=== PATIENT | male | born 1955 | race Asian ===

== ENCOUNTER 2023-08-14 18:30 | Emergency (ER) | payer OTHER, SELFPAY ==
--- NOTE | ~2023-08-14 | XR_ITS ---
EXAMINATION: XR CHEST CLINICAL INFORMATION: Chest pain COMPARISON: Chest radiograph from 01/27/2006 (report only) TECHNIQUE: 2 views of the chest were obtained. FINDINGS: Slight elevation the right hemidiaphragm. Bibasilar atelectasis, right greater than left. No pneumothorax. Trachea is midline. Cardiomediastinal silhouette is enlarged. Aorta demonstrates mild tortuosity. No large pleural effusion. Degenerative changes of the thoracolumbar spine. Soft tissues are unremarkable. XR/XR chest 2V IMPRESSION: 1. Slight elevation the right hemidiaphragm. 2. Bibasilar atelectasis, right greater than left.
--- NOTE | 2023-08-14 18:36 | ECG_ITS ---
Test Reason : CHEST PAIN Blood Pressure : / mmHG Vent. Rate : 101 BPM Atrial Rate : 101 BPM P-R Int : 178 ms QRS Dur : 084 ms QT Int : 334 ms P-R-T Axes : 025 -08 033 degrees QTc Int : 433 ms Sinus tachycardia Minimal voltage criteria for LVH, may be normal variant ( R in aVL ) Borderline ECG When compared with ECG of 20-OCT-2005 08:47, No significant change was found Referred By: Generic ED Physician Electronically Signed By:GEO XIE
[2023-08-14 18:53] VITALS: BP 188/94; PULSE 101; RESP 16; TEMP 37; O2SAT 95; BMI 26.4
[2023-08-14 19:20] LABS: Hematocrit 43.3 % (42.0-52.0); Hemoglobin 14.7 g/dl (14.0-18.0); Mean Corpuscular HGB Conc 33.9 g/dl (31.0-36.0); Mean Corpuscular Hemoglobin 28.1 pg (27.0-33.0); Mean Corpuscular Volume 82.6 fL (80.0-98.0); Mean Platelet Volume 10.1 fL (9.4-12.4); Platelet Count 276 X10*3/uL (160-400); Red Blood Count 5.24 X10*6/uL (4.60-5.80)
[2023-08-14 19:34] LABS: Alanine Aminotransferase 21 U/L (0-40); Albumin Level 4.1 g/dL (3.5-5.0); Alkaline Phosphatase 113 U/L (39-117); Anion Gap 14 (12-20); Aspartate Amino Transferase 19 U/L (5-37); Bilirubin Total 0.6 mg/dL (0.0-1.0); Blood Urea Nitrogen 12 mg/dL (9-16); Calcium 9.5 mg/dL (8.4-10.2); Carbon Dioxide 23 mmol/L (22-29); Chloride 103 mmol/L (96-108); Creatinine Clr Calc Pharmacy 68.9; Estimated Glomerular Filt Rate > 60; Glucose Random 151 mg/dL (60-115); Potassium 4.6 mmol/L (3.3-5.1); Sodium 135 mmol/L (135-145); Total Protein 7.9 g/dL (6.5-8.0)
[2023-08-14 19:43] LABS: Troponin-I High Sensitivity < 2.7 ng/L (<3.5-35.0)
[2023-08-14 19:47] VITALS: BP 153/75; PULSE 99; RESP 18; TEMP 36.9; O2SAT 98
--- NOTE | 2023-08-14 19:48 | MHC.EDTECH ---
Patient came in from waiting area ,patient changed into hospital attire and placed on the engine monitor,vitals and rounds completed. Call hudson within reach
--- NOTE | 2023-08-14 20:26 | ED_ITS ---
HPI - Chest Pain General Chief Complaint: Chest Pain Stated Complaint: chest pain Time Seen by Provider: 08/14/23 19:47 Source: patient and family () Mode of arrival: ambulatory Limitations: no limitations History of Present Illness HPI narrative: Patient is a 68-year-old male with history of HTN, high cholesterol presenting to the emergency department with brief intermittent episodes of chest pain which woke him from sleep this morning. States episodes of pain last just a few seconds and then spontaneously resolve. Denies any associated shortness of breath, lightheadedness, dizziness. Denies recent cough or fevers. Denies any nausea or vomiting. Denies any lower extremity edema. States that he does not have a alumnae secretary and has not had a stress test. Denies any back pain. Denies recent calf pain or swelling. Took 81 mg of aspirin at home today. MD complaint: chest pain Pertinent past history: other (HTN, high cholesterol) Onset (ago): hour(s) Timing of current episode: episodic Prior episodes: No Onset: during rest Pain location: substernal Pain radiation: none Severity: moderate Quality: sharp Relieving factors: nothing Exacerbating factors: nothing Treatment prior to arrival: aspirin Related Data Allergies Allergy/AdvReac Type Severity Reaction Status Date / Time No Known Allergies Allergy Verified 08/14/23 18:57 Review of Systems 2 Review of Systems: As per HPI. Yes all other systems are reviewed and are negative Constitutional: Constitutional: Reports as per HPI [facility] Social History Social History Alcohol intake: never Smoked in Last 30 Days: No Use of substances other than those prescribed or required for medical reasons: No Advance Directives: No Advance Directives Information Provided: No Physical Exam 2 Vital Signs: Vital Signs: Last Vital Signs Temp 98.2 F 08/14/23 21:55 Pulse 80 08/14/23 21:55 Resp 18 08/14/23 21:55 BP 136/80 08/14/23 21:55 Pulse Ox 95 08/14/23 21:55 O2 Del Method Room Air 08/14/23 21:55 BMI result Body Mass Index 26.4 Vital signs have been reviewed and appear to be correct. Blood pressure elevated. Heart rate normal. Respiratory rate normal. Temperature normal. Oxygen saturation normal. Const: General: cooperative, healthy appearing and no acute distress O rientation/consciousness: oriented to person, oriented to place, oriented to time and patient oriented x3 Limitations: no limitations HEENT: Head: Yes normocephalic and Yes atraumatic Ears: external ears normal General nose exam: Normal external nose present Face and sinus: Yes face symmetric Mouth: oropharynx normal and moist mucous membranes Throat: Yes uvula midline Eyes: Pupils: Equal, round and reactive pupils present Neck: Neck: Yes normal visual inspection and Yes supple Resp: Effort & Inspection: normal respiratory effort and able to speak in complete sentences Auscultation: clear to auscultation bilaterally Cardio: Rate: regular rate Rhythm: regular rhythm Heart sounds: S1 normal heart sound present and S2 normal heart sound present GI: Palpation (GI): Soft to palpation and nontender Auscultation: n ormoactive bowel sounds : General: Yes no CVA tenderness Back/Spine/Pelvis: Back: no CVA tenderness Skin: General skin exam: elasticity normal and turgor normal Neuro: General: oriented to person, oriented to place, oriented to time, patient oriented x3, moves all extremities, no focal motor deficits and CN's II- XI intact bilaterally Cranial nerves: Yes Equal, round and reactive pupils present Cognition (Neuro): normal cognition Extrem: General: Yes full ROM, Yes no pedal edema and Yes no calf tenderness Psych: Mental Status: mental status grossly normal Affect: normal affect Thought process: Normal thought process present Medical Decision Making Medical Decision Making MDM Narrative: Patient is a 68-year-old male with history of HTN, high cholesterol presenting to the emergency department with brief intermittent episodes of chest pain which woke him from sleep this morning. On exam patient is awake, A+Ox3, VS WNL, afebrile, normal neurological exam without focal deficits, physical exam findings as above. Given reported symptoms and physical exam findings, initial differential includes ACS, pneumonia, pneumothorax, GERD, musculoskeletal pain. Low risk for PE based on Wells. Do not suspect aortic dissection or esophageal rupture. Labs notable for no leukocytosis, no anemia no electrolyte abnormalities, initial troponin negative. X-ray notable for bibasilar atelectasis. My interpretation is in agreement with the radiologist's interpretation. Will obtain repeat troponin in 3 hours. No delta on repeat troponin. HEART score 3. EKG shows sinus tachycardia with rate of 101 bpm, normal IN and QT intervals, no evidence of STEMI. All results discussed with patient and and all questions answered. Feel patient is stable for discharge home at this time with outpatient cardiology follow-up. Will refer patient to cardiology as he states he does not have a alumnae secretary. Return precautions discussed at bedside. Patient and verbalized understanding of and agreement with plan. Differential Diagnosis Differential Diagnoses: The differential diagnosis associated with the presentation includes As per MDM. Admission/Observation Consideration of admission/observation: Escalation of care including admission/observation considered Lab Data [facility] Lab Attestation statement: I reviewed the patient's lab results. As per MDM. 08/14/23 19:16 08/14/23 19:16 Labs: Lab Results 08/14/23 08/14/23 Range/Units 19:16 22:14 WBC 7.0 (4.8-10.8) X10*3/uL RBC 5.24 (4.60-5.80) X10*6/uL Hgb 14.7 (14.0-18.0) g/dl Hct 43.3 (42.0-52.0) % MCV 82.6 (80.0-98.0) fL MCH 28.1 (27.0-33.0) pg MCHC 33.9 (31.0-36.0) g/dl RDW 13.0 (11.0-16.0) % Plt Count 276 (160-400) X10*3/uL MPV 10.1 (9.4-12.4) fL Absolute Nucleated RBC 0.000 (0.0-0.012) X10*3/uL Nucleated RBC % (auto) 0.0 (0.0-0.2) /100WBC Sodium 135 (135-145) mmol/L Potassium 4.6 (3.3-5.1) mmol/L Chloride 103 (96-108) mmol/L Carbon Dioxide 23 (22-29) mmol/L Anion Gap 14 (12-20) BUN 12 (9-16) mg/dL Creatinine 0.88 (0.5-1.4) mg/dL Estim Creat Clear Calc 68.9 Estimated GFR > 60 Random Glucose 151 H (60-115) mg/dL Calcium 9.5 (8.4-10.2) mg/dL Total Bilirubin 0.6 (0.0-1.0) mg/dL AST 19 (5-37) U/L ALT 21 (0-40) U/L Alkaline Phosphatase 113 (39-117) U/L Troponin I High Sens < 2.7 < 2.7 (<3.5-35.0) ng/L Total Protein 7.9 (6.5-8.0) g/dL Albumin 4.1 (3.5-5.0) g/dL Independent Interpretation I performed an independent interpretation of an: EKG and Plain X-Ray Interpretation: Sinus tachycardia, rate 101 the p.m., normal IN and QT intervals, no evidence of STEMI Bibasilar atelectasis noted on chest x-ray Radiology Impression Discussion of test interpretation with radiology: I have reviewed the radiologist's reading. Radiologist Impression: XR/XR chest 2V IMPRESSION: 1. Slight elevation the right hemidiaphragm. 2. Bibasilar atelectasis, right greater than left. Independent Historian Clinical information obtained from an independent historian. History obtained from or confirmed by: Spouse External Record Review External record reviewed: Inpatient record, Office record and Outpatient record Chronic Conditions Patient?s care impacted by: Hypertension Scores Heart Score History: -0- slightly suspicious ECG: -0- normal Age: -2- > or = 65 Risk factory: -1- 1 or 2 risk factors Troponin: -0- < or = normal limit Score: 3 Risk: 1.7% Discharge Plan Discharge Clinical Impression: Atypical chest pain Patient Disposition: Home, Self-Care Instructions: Chest Pain (DC) Additional Instructions: You were evaluated in the emergency department today for chest pain. Your evaluation has shown no signs of medical conditions requiring emergent intervention at this time, however we recommend that you follow-up with your primary care physician as possible for further testing as an outpatient. Are also being referred to Cardiology, please contact their office to set up an appointment. Return to the emergency department if you experience worsening or uncontrolled chest pain, shortness of breath, lightheadedness, feeling faint, loss of consciousness, nausea, vomiting, or any other concerning symptoms. Referrals: [facility] Cardiovascular Services [Provider Group]
[2023-08-14 21:55] VITALS: BP 136/80; PULSE 80; RESP 18; TEMP 36.8; O2SAT 95
[2023-08-14 22:42] LABS: Troponin-I High Sensitivity < 2.7 ng/L (<3.5-35.0)
== END 2023-08-14 23:16 | disposition home or self-care (01) ==
PROVIDERS: Registered Nurse Emergency; Emergency Provider Emergency Medicine; PCP Internal Medicine
DX: R07.89 Other chest pain (principal); I10 Essential (primary) hypertension; Z79.899 Other long term (current) drug therapy
CPT/HCPCS: 36415; 71046; 80053; 84484; 85027; 93005; 99284; 99285

== ENCOUNTER 2023-08-19 13:17 | Outpatient (AMB) | payer OTHER, SELFPAY ==
[2023-08-19 13:20] VITALS: BP 130/78; PULSE 74; BMI 26.0
--- NOTE | 2023-08-19 13:20 | MHC.OFFVIS ---
Intake Vital Signs 08/19/23 13:20 Height 5 ft 5 in Weight 156 lb 8.451 oz BMI 26.0 BP 130/78 Blood Pressure Location Lt brachial Position Sitting Pulse 74 Intake Visit Reasons: [facility] Follow up chest pain Intake Note: [facility] ED dx chest pain feeling good now Coiled Tubing Operator Required: No Allergies No Known Allergies Allergy (Verified 08/19/23 13:48) Medication List - Last Reconciled 08/19/23 by Arianna Freeman NP atenolol 25 mg PO DAILY atorvastatin 20 mg PO DAILY losartan 50 mg PO DAILY HPI HPI Comments History of Present Illness Details 68-year-old man comes in for a follow-up from the emergecy room. He was seen at [facility] ED for chest pain that woke him up from sleep. He described this pain as a one time incident and was stabbing like for 1-2 seconds. He has not seen a junior network engineer. He has not had the chest pain since and reports he can still exercise on the treadmill and do his daily activies such as mow the lawn without chest pain. He reports some family history of cardiac issues in his mother but he is unsure what they are. He denies any chest discomfort, dizziness, SOB, smoking, drinking, nausea, or any other symptoms. He reports he has been doing well other than that one day. [facility] Medical History (Updated 08/19/23 @ 13:58 by Arianna Freeman NP) Hyperlipidemia Hypertension Chest pain Family History Father No problems noted. Mother CAD (coronary artery disease) Brother CAD (coronary artery disease) Social History Alcohol intake: never Patient Tobacco Use Status: Never used Tobacco Review of Systems Const Denies chills, Denies daytime sleepiness, Denies fatigue, Denies fever(s), Denies frequent falls, Denies poor appetite, Denies snoring, Denies stops breathing during sleep, Denies weakness, Denies weight gain and Denies weight loss Eyes Denies loss of vision ENT Denies dizziness and Denies hearing loss Card Denies chest pain, Denies claudication, Denies leg edema, Denies lightheadedness, Denies palpitations, Denies dyspnea, Denies dyspnea on exertion and Denies orthopnea Resp Denies cough, Denies excessive phlegm production, Denies dyspnea, Denies dyspnea on exertion, Denies snoring and Denies wheezing GI Denies abdominal pain, Denies hematochezia, Denies change in bowel habits, Denies nausea and Denies vomiting Denies dysuria and Denies urinary frequency Musc Denies arthralgias, Denies muscle weakness, Denies numbness and Denies other (frequent falls) Skin/Breast Denies nail changes and Denies rash Neuro Denies Abnormal speech present, Denies dizziness, Denies frequent falls, Denies loss of vision, Denies memory loss, Denies numbness and Denies weakness Psych Denies depression and Denies memory loss Endo Denies fatigue and Denies palpitations Avmsi/Lymph Reports easy bruising and Reports other (anemia) Aller/Immun Denies wheezing Physical Exam Vital Signs: Last Vital Signs Pulse 74 08/19/23 13:20 BP 130/78 08/19/23 13:20 BMI result Body Mass Index 26.0 Const General: healthy appearing and no acute distress Orientation/consciousness: patient oriented x3 HEENT Head: Yes normal to inspection Eyes General: appearance normal, both eyes and all related structures Neck Neck: Yes normal visual inspection Chest Chest palpation & inspection: normal inspection of the chest Resp Effort & Inspection: normal respiratory effort Auscultation: clear to auscultation bilaterally Cardio Jugular venous distension: no JVD Palpation: normal PMI Rate: regular rate Rhythm: regular rhythm Heart sounds: S1 normal heart sound present, S2 normal heart sound present, no click, no gallops, no murmurs and no rubs GI Inspection: Yes normal to inspection Palpation (GI): Soft to palpation Skin General skin exam: no rashes or lesions noted Neuro General: patient oriented x3 Speech: No Abnormal speech present Extrem General: Yes normal to inspection Psych Appearance: grossly normal Assessment & Plan Assessment & Plan (1) Hypertension: Code(s): I10 - Essential (primary) hypertension (2) Chest pain: Code(s): R07.9 - Chest pain, unspecified (3) Hyperlipidemia: Code(s): E78.5 - Hyperlipidemia, unspecified Plan Hyperlipidemia and hypertension has been under the care of PCP. His blood pressure is good today. He reports no chest discomforts since, but will like to rule out ischemia and structural issues. He was instructed for a heart healthy diet and to report any new or concerning symptoms. Will have him return in six months to visit with Dr. Beckman and will call with results. He can return sooner if needed. Will request labs from PCP so we can see lipid panel. Orders: Orders CA echo transthoracic complete Today I10 - Essential (primary) hypertension, R07.9 - Chest pain, unspecified CA stress test Today I10 - Essential (primary) hypertension, R07.9 - Chest pain, unspecified Coding Level of Care Code Est Pt Level 3 (18080) Diagnoses Hypertension I10 Chest pain R07.9 Hyperlipidemia E78.5
== END 2023-08-19 13:49 | disposition home or self-care (01) ==
PROVIDERS: PCP Internal Medicine; Visit Provider Nurse Practitioner
DX: I10 Essential (primary) hypertension (principal); R07.9 Chest pain, unspecified; E78.5 Hyperlipidemia, unspecified
CPT/HCPCS: 99213

== ENCOUNTER → 2023-08-19 13:17 | Outpatient (BNVA) | payer OTHER, SELFPAY | PROVIDERS: PCP Internal Medicine; Visit Provider Nurse Practitioner | DX: R07.9 Chest pain, unspecified (principal); I10 Essential (primary) hypertension; E78.5 Hyperlipidemia, unspecified | CPT/HCPCS: 99212 ==

== ENCOUNTER → 2023-09-22 08:22 | Outpatient (REF) | payer OTHER, SELFPAY ==
--- NOTE | 2023-09-22 08:25 | CA_ITS ---
Transthoracic Echocardiogram Patient (Last, First, Middle): Juliano Watson, Gender: Male Date of : 1955 Age: 68 Procedure Date: 09/22/2023 Procedure Type: Transthoracic Echocardiogram Location: OP Height: 165.1 cm Weight: 71.67 kg BSA: 1.79 m2 Heart Rate: 72 bpm BP: 130 / 80 mmHg Cyanide Pot Tender: LYNNE Referring MD: Arianna Freeman [employer] REFINISHER Photogravure Press Operator: Rodger Beckman MD Symptoms: R07.9 - Chest pain, unspecified Study Quality: Fair ECG Rhythm: Sinus Conclusions: - 1. Normal LV ejection fraction 65-70% with grade 1 diastolic dysfunction 2. Cardiac valvular Dopplers within normal limits 3. No gross pericardial effusion Findings Left Ventricle Normal left ventricular size, thickness, and systolic function. The visually estimated ejection fraction is between 65-70%. Spectral Doppler is indicative of an impaired relaxation filling pattern. E/E prime ratio is <8, consistent with normal filling pressures. Evidence suggests grade I (mild) diastolic dysfunction. Peak GLS is -22.2%, within normal limits. Right Ventricle Normal right ventricular cavity size and systolic function. Atria The left atrium is likely dilated. Interatrial shunt cannot be excluded. The right atrium is normal in size. Aortic Valve The aortic valve structure and function is likely normal. There is no aortic valve stenosis. There is no aortic valve regurgitation. Mitral Valve Normal mitral valve structure and function. There is trace mitral valve regurgitation. There is no mitral valve stenosis. Pulmonic Valve The pulmonic valve was not well visualized. Tricuspid Valve Likely normal tricuspid valve structure and function. Tricuspid regurgitation envelope is inadequate for calculation of right ventricular systolic pressure. Normal right atrial pressure. Great Vessels All visible segments of the aorta are normal in size. The pulmonary artery was not well visualized. Venous The inferior vena cava is normal in size and collapses greater than 50% with inspiration. Pericardium/Pleural There is no evidence of pericardial effusion. Prior Study Comparison No prior study available for comparison. Measurements 2D Linear Measurements IVSd: 1.16 0.6-0.9/0.6-1.0 cm LVIDd: 4.35 3.9-5.3/4.2-5.9 cm LVIDd Index: 2.43 2.4-3.2/2.2-3.1 cm/m2 LVIDs: 2.53 2.0-3.6 cm LVPWd: 0.78 0.7-1.1 cm LA Diam: 3.00 2.7-3.8/3.0-4.0 cm LAIDs Index: 1.68 1.5-2.3 cm/m2 LV Mass: 173.70 67-162/88-224 g LV Mass Index: 97.04 43-95/49-115 g/m2 LVOT Diam: 2.00 3.0+(-)1.3 cm 2D Systolic Function EF 4C: 60.30 >55% EF 2C: 70.10 >55% EF BiP: 66.10 >55% Mitral Valve MV Pk E: 0.69 MV PK A: 0.84 MV Decel Time: 287.00 E/A: 0.80 E'Lateral: 10.70 E'Medial: 7.51 E/E' Med: 9.20 E/E' Lat: 6.50 PHT: 84.00 MVA PHT: 2.62 Decel [place]: 2.42 Aortic Valve AoV Pk Terry: 1.59 AoV Mn Terry: 1.01 AoV VTI: 0.34 AoV Pk Grad: 10.00 Aov Mn Grad: 5.00 JUVENTINO Cont.VTI: 3.02 LVOT LVOT Pk Terry: 1.48 LVOT Mn Terry: 0.94 LVOT VTI: 0.33 LVOT Pk Grad: 9.00 LVOT Mn Grad: 4.00 LVOT Diam: 2.00 LVOT Area: 3.14 Diastolic Function MV Pk E: 0.69 MV Pk A: 0.84 E/A: 0.80 E'Medial: 7.51 E/E' Med: 9.20 E' Laterial: 10.70 E/E' Lat: 6.50 Right Ventricle TAPSE (mm): 22.10 TVS' Terry: 12.70 Great Vessels Aorta Sinus of Valsalva: 3.47 2.0-3.5 cm Ao Asc: 3.30 2.1-3.4 cm Updated in Other Vendor System with Status of Final Rodger Beckman MD electronically signed on 09/23/2023 4:40:51 PM with status of Final
--- NOTE | 2023-09-22 08:25 | CA_ITS ---
Acquisition Time: 2023-09-22 09:16:32 Total Exercise Time: 00:09:44 Test Indications: CP Medications: SEE H Protocol: RAJ Max HR: 153 BPM 101% of Pred: 151 BPM Max BP: 168/072 mmHG Max Work Load: 11.3 METS Exercise stress test exercise 9 min 44 sec of raj protocol achieving 100% MPHR, without anginal symptoms, without arrhtyhmias, with normotensive response to exercise, without EKG changes. Test reviewed with Dr. Beckman Referred By: Arianna Freeman Overread By: Arianna Freeman
== END ==
LOC: HO.CARD 08:22
PROVIDERS: PCP Internal Medicine; Visit Provider Nurse Practitioner
DX: R07.9 Chest pain, unspecified (principal); I10 Essential (primary) hypertension
CPT/HCPCS: 93017; 93306; 93356

== ENCOUNTER → 2023-09-22 08:25 | Outpatient (BNV) | payer OTHER, SELFPAY | PROVIDERS: PCP Internal Medicine; Visit Provider Nurse Practitioner | DX: I51.9 Heart disease, unspecified (principal); R07.9 Chest pain, unspecified | CPT/HCPCS: 93016; 93018; 93306 ==